=== PATIENT | female | born 1975 | race African-American/Black ===

== ENCOUNTER 2022-09-17 01:57 | Emergency (ER) | payer MEDICAID ==
[~2022-09-17 01:57] MED LIST: ASPI-1450 PO; HYDR25TA2 PO
[2022-09-17 04:09] LABS: BASOPHILS % (AUTO) 0.5 % (0.0-2.0); EOSINOPHILS % (AUTO) 4.2 % (1.0-6.0); HEMATOCRIT 32.7 % (36-46); HEMOGLOBIN 10.6 g/dL (12.0-16.0); LYMPHOCYTES # (AUTO) 1.5 K/uL (1.0-4.8); MEAN CORPUSCULAR HEMOGLOBIN 26.5 pg (26.0-34.0); MEAN CORPUSCULAR HGB CONC 32.4 G/dL (31.0-37.0); MEAN CORPUSCULAR VOLUME 82 fL (80-100); MONOCYTES # (AUTO) 0.5 K/uL (0.1-1.0); MONOCYTES % (AUTO) 9.9 % (2.0-9.0); NEUTROPHILS # (AUTO) 2.5 K/uL (1.8-7.7); NEUTROPHILS % (AUTO) 53.4 % (40.0-70.0); PLATELET COUNT (AUTO) 372 K/uL (150-450)
[2022-09-17 04:13] LABS: COVID AG,FIA SOURCE NASAL SWAB
[2022-09-17 04:29] LABS: ANION GAP 3 mmol/L (8-16); CALCIUM, TOTAL 9.4 mg/dL (8.8-10.5); CARBON DIOXIDE 30 mmol/L (22-29); CHLORIDE 105 mmol/L (98-107); CREATININE 0.84 mg/dL (0.60-1.30); GLOMERULAR FILTR. RATE CALC > 60 mL/min (>60); GLUCOSE,RANDOM 127 mg/dL (70-110); POTASSIUM 3.7 mmol/L (3.5-5.1); SODIUM SERUM 138 mmol/L (136-145); UREA NITROGEN, BLOOD 15 mg/dL (7-18)
[2022-09-17 04:35] LABS: B-TYPE NATRIURETIC PEPTIDE 117 pg/mL (0-100)
[2022-09-17 04:38] LABS: ALANINE AMINOTRANSFERASE 30 U/L (12-78); ALBUMIN 3.2 g/dL (3.4-5.0); ALKALINE PHOSPHATASE 92 U/L (46-116); ASPARTATE AMINOTRANSFERASE 21 U/L (15-37); BILIRUBIN,TOTAL 0.2 mg/dL (0.1-1.0); TOTAL PROTEIN, SERUM 7.9 g/dL (6.4-8.2)
[2022-09-17] MEDS: FUROSEMIDE 40 MG/4 ML VIAL IVP ONE (04:54)
[2022-09-17] MEDS ORDERED: 0.9% SODIUM CHLORIDE 10 ML SYRINGE IVP PRN (06:00)
[2022-09-17 17:41] VITALS: BP 165/91
[2022-09-17] MEDS ORDERED: LOSA-381 PO (18:17)
[2022-09-17] MEDS ORDERED: FURO-152 PO (18:17)
[2022-09-17] MEDS ORDERED: ASPI-1450 PO (18:17)
[2022-09-17] MEDS ORDERED: SPIR-37 PO (18:17)
[2022-09-17] MEDS ORDERED: METO25XL PO (18:17)
[2022-09-17] MEDS ORDERED: ATOR20TA86 PO (18:17)
== END 2022-09-17 18:40 | disposition home or self-care (01) ==
LOC: EMS 01:58
DX: I50.9 Heart failure, unspecified (principal); Z20.822 Contact with and (suspected) exposure to COVID-19; E11.9 Type 2 diabetes mellitus without complications; F41.9 Anxiety disorder, unspecified; F17.210 Nicotine dependence, cigarettes, uncomplicated; F14.10 Cocaine abuse, uncomplicated; I31.39 Other pericardial effusion (noninflammatory); J44.9 Chronic obstructive pulmonary disease, unspecified
CPT/HCPCS: 99285; 96374; 71045; 87426; 80053; 83880; 84484; 85025; 87040; 93005; 36415; J1940

== ENCOUNTER 2022-12-18 19:51 | Emergency (ER) | payer MEDICAID ==
[~2022-12-18] VITALS: Ht 180.3 cm; Wt 113.6 kg
[~2022-12-18 19:51] MED LIST changes: +ATOR20TA86 PO; +FURO-152 PO; -HYDR25TA2 PO; +LOSA-381 PO; +METO25XL PO; +SPIR-37 PO
[2022-12-19] MEDS ORDERED: ACETAMINOPHEN 500 MG TABLET PO ONE (02:15)
[2022-12-19 05:10] VITALS: BP 136/78
== END 2022-12-19 06:00 | disposition home or self-care (01) ==
LOC: EMS 19:52
DX: S09.90XA Unspecified injury of head, initial encounter (principal); F41.9 Anxiety disorder, unspecified; J45.909 Unspecified asthma, uncomplicated; I50.9 Heart failure, unspecified; J44.9 Chronic obstructive pulmonary disease, unspecified; E11.9 Type 2 diabetes mellitus without complications; F17.210 Nicotine dependence, cigarettes, uncomplicated; X58.XXXA Exposure to other specified factors, initial encounter; Y93.89 Activity, other specified; Y92.89 Other specified places as the place of occurrence of the external cause; Y99.8 Other external cause status
CPT/HCPCS: 70450; 70486; 72125; 99285